=== PATIENT | female | born 1945 | race African-American/Black ===

== ENCOUNTER 2017-09-08 10:29 | Emergency (ER) | payer OTHER ==
[~2017-09-08] VITALS: Ht 167.6 cm; Wt 75.8 kg
[~2017-09-08 10:29] MED LIST: CALTRATE 600 +1 EACH PO; HYDROXYCHLOROQ200 M2 PO; MONTELUKAST SOD10 M1 PO; SINGULAIR10 M1 PO; TYLENOL WITH C1 EACH PO; VITAMIN B-121000 MC3 PO; VITAMIN D1000 UNIT PO; ZYRTEC10 M3 PO
[2017-09-08 10:35] VITALS: BP 148/80
--- NOTE | 2017-09-08 11:41 | ED UPPER/LOWER EXTREMITY COMPL ---
History of Present Illness General Chief Complaint: Skin Rash/ Abcess Stated Complaint: R ARM SWELLING Source: patient Exam Limitations: no limitations Vital Signs & Intake/Output Vital Signs & Intake/Output Vital Signs Date Time Temp Pulse Resp B/P B/P Pulse O2 O2 Flow FiO2 Mean Ox Delivery Rate 09/08 1130 97 09/08 1035 98.0 89 20 148/80 97 Room Air Allergies Coded Allergies: acetaminophen (From PERCOCET) (RASH 12/31/16) morphine (RASH 12/31/16) oxycodone (From PERCOCET) (RASH 12/31/16) Reconcile Medications Calcium Carbonate/Vitamin D3 (Caltrate 600 + D Tablet) 600 MG-800 TABLET 1 TAB PO DAILY SUPPLEMENT (Reported) Cephalexin (Keflex) 500 MG CAPSULE 1 CAP PO TID CELLLITIS Cetirizine HCl (Zyrtec) 10 MG TABLET 1 TAB PO DAILY ALLERGIES (Reported) Cholecalciferol (Vitamin D3) (Vitamin D) 1,000 UNIT TABLET 1 TAB PO DAILY VITAMIN SUPPORT (Reported) Cyanocobalamin (Vitamin B-12) 1,000 MCG TABLET 1 TAB PO DAILY VITAMIN SUPPORT (Reported) Fluconazole (Diflucan) 150 MG TABLET 1 TAB PO ONCE PREVENTATIVE Hydroxychloroquine Sulfate 200 MG TABLET 1 TAB PO BID UNKNOWN (Reported) Montelukast Sodium 10 MG TABLET 1 TAB PO DAILY ALLERGIES (Reported) Montelukast Sodium (Singulair) 10 MG TABLET 1 TAB PO DAILY ALLERGIES ( Reported) Tylenol With Codeine (Tylenol With Codeine #3 Tablet) 300 MG-30 MG TABLET 1 TAB PO BIDP PRN PAIN DO NOT OPERATE MOTOR VEHICLES WITH THIS MEDICATION Triage Note: PT TO ED C/O MYNOR SWELLING SINCE LAST NIGHT. SMALL BRUISE NOTED TO AC AREA. UNKNOWN OBVIOUS INJURY. Triage Nurses Notes Reviewed? yes Onset: Abrupt Duration: day(s): Timing: recent history Severity: moderate Pain/Injury Location: Right: Arm. Method of Injury: unknown No Modifying Factors: none HPI: 72-year-old female comes into the emergency room for swelling to right arm. Symptoms began yesterday mildly got worse today. She reports that she may have been bit by something. Some associated pain. Denies any fever chills vomiting or any other associated symptoms. Comes in for further evaluation. (Keon Pardo) Past History Travel History Traveled to [place] past 21 day No Medical History Any Pertinent Medical History? see below for history EENT: allergies Musculoskeletal: SPINAL STENOSIS DEGENERATIVE DISC DISEASE Surgical History Surgical History: non-contributory Psychosocial History What is your primary language [place] Tobacco Use: Quit >30 days ago ETOH Use: occasional use Illicit Drug Use: denies illicit drug use Family History Hx Contributory? No (Keon Pardo) Review of Systems Review of Systems Constitutional: Reports: no symptoms. EENTM: Reports: no symptoms. Respiratory: Reports: no symptoms. Cardiovascular: Reports: no symptoms. Gastrointestinal/Abdominal: Reports: no symptoms. Genitourinary: Reports: no symptoms. Musculoskeletal: Reports: see HPI. Skin: Reports: see HPI. Neurological/Psychological: Reports: no symptoms. Hematologic/Endocrine: Reports: no symptoms. Immunological: Reports: no symptoms. All Other Systems: Reviewed and Negative (Keon Pardo) Physical Exam Physical Exam General Appearance: well developed/nourished, no apparent distress, alert, awake Head: atraumatic Eyes: Bilateral: normal appearance. Ears, Nose, Throat: normal ENT inspection, hearing grossly normal Neck: normal inspection Cardiovascular/Respiratory: no respiratory distress Back: normal inspection Elbow Right: Mild swelling to right antecubital fossa extending up the upper arm , small 1 cm patch purplish in nature over medial aspect of antecubital fossa Neurologic/Tendon: normal sensation, normal motor functions, normal tendon functions, responds to pain, no evidence tendon injury, no pulse deficit Skin: intact, normal color, warm/dry (Keon Padro) Progress Differential Diagnosis: cellulitis, contusion, DVT, fracture Plan of Care: Orders Procedure Date/time Status US-UNILATERAL VENOUS DOPPLER 09/09 1139 Active Diagnostic Imaging: Viewed by Me: Ultrasound. Discussed w/RAD: Ultrasound. Radiology Impression: PATIENT: CHARLOTTE CHEN PRESENT AGE: 72 PATIENT ACCOUNT NO: [id number] : 45 LOCATION: [facility] ORDERING PHYSICIAN: Keon HART SERVICE DATE: 09/08/17-1139 EXAM TYPE: US - US -UNILATERAL VENOUS DOPPLER EXAMINATION: RIGHT UPPER EXTREMITY VENOUS DOPPLER ULTRASOUND CLINICAL INFORMATION: Sets swelling of the right arm. Presumptive diagnosis of rule out DVT right arm. COMPARISON: None. TECHNIQUE: Doppler spectral analysis and color flow Doppler imaging was performed of the right upper extremity. Compression and augmentation maneuvers were performed. FINDINGS : The right internal jugular vein, proximal brachiocephalic vein, subclavian vein and axillary veins are all patent with normal color flow and phasic changes seen. The upper paired brachial veins are also patent with normal color flow and compressibility seen. In the mid upper arm, however, one of the paired brachial veins is diminutive/atrophic, perhaps as a congenital variant or due to sequelae of previous injury or DVT. The basilic vein is patent with normal compressibility and color flow demonstrated. The cephalic vein is not visualized. The proximal radial and ulnar veins are not evaluated. IMPRESSION: 1. No evidence of acute deep venous thrombosis in the right upper extremity down to the elbow. 2. One of the paired brachial veins in the mid and lower upper arm is markedly diminutive/atrophic, perhaps due to a congenital variant or due to sequelae of previous injury or DVT. 3. The forearm veins were not evaluated and the cephalic vein was not visualized. Depending on clinical circumstances, repeat right upper extremity venous Doppler ultrasound in 7-10 days can be performed to exclude proximal clot propagation from a nonvisualized vein. DICTATED BY: Isabella Yung MD DATE/TIME DICTATED:09/08/171238 FUEL SYSTEM MAINTENANCE SUPERVISOR:MARY CARMEN DATE/TIME TRANSCRIBED:09/08/171238 CONFIDENTIAL, DO NOT COPY WITHOUT APPROPRIATE AUTHORIZATION. <Electronically signed in Other Vendor System> SIGNED BY: Isabella Yung MD 09/08/17 1405 Comments: 09/08/2017 2:59:56 PM Patient clinically looks well. Patient is in no apparent distress. Nontoxic- appearing. No evidence of DVT. Warm compresses. Keflex as prescribed. Likely consistent with cellulitis secondary to INSECT bite of some sort. (Nikolai HART,Keon) Departure Departure Disposition: HOME OR SELF CARE Condition: Stable Clinical Impression Primary Impression: Cellulitis of right arm Referrals: Darryl LEVY,Mitchell Amado (PCP/Family) Additional Instructions: Take Keflex as prescribed. Warm compresses. Elevate your arm. Return if any concerns worsening symptoms. Please go over all results of today's visit with your primary care doctor. Contact your primary care doctor to let them know you were here in the emergency room. There may be nonspecific findings which may not be related to your visit today here in the emergency room but may require further evaluation and chronic monitoring by your primary care doctor. If you had a laceration today the chance of foreign body always remains. You should follow-up with your primary care doctor for recheck in 3-5 days for a wound check. If you had an x-ray done there is a chance that a fracture could have been missed on initial read and you should follow-up with your primary care doctor for repeat x-rays if symptoms persist. If your blood pressure was elevated here in the emergency room please have rechecked by alvaro primary care doctor within the next 48. If you were prescribed a narcotic here in the emergency room or any type of controlled substances you're not allowed to drive while taking this medication or operate any type of heavy machinery. Narcotics can make you feel lightheaded dizziness nausea and can cause constipation. You may need to citrus picker a stool softener. Thank you for choosing [facility] emergency room. Please return to the emergency room immediately if you have any other concerns worsening of symptoms. Departure Forms: Customer Survey General Discharge Information Prescriptions: Current Visit Scripts Cephalexin (Keflex) 1 CAP PO TID #21 CAP Fluconazole (Diflucan) 1 TAB PO ONCE #1 TAB (Keon Pardo) PA/WRAPPER SELECTOR Co-Sign Statement Statement: ED Attending supervision documentation- [X] I saw and evaluated the patient. I have also reviewed all the pertinent lab results and diagnostic results. I agree with the findings and the plan of care as documented in the PA's/WRAPPER SELECTOR's documentation. Patient presents for evaluation of redness and swelling of the right arm. Physical examination reveals redness and swelling in the area of the right antecubital fossa, the right upper extremity is otherwise neurovascularly intact distally. [] I have reviewed the ED Record and agree with the PA's/WRAPPER SELECTOR's documentation. [] Additions or exceptions (if any) to the PAs/WRAPPER SELECTOR's note and plan are summarized below: [] (Madeline LEVY,Edgar Amado)
--- NOTE | 2017-09-08 14:05 | ULTRASOUND REPORT ---
EXAMINATION: RIGHT UPPER EXTREMITY VENOUS DOPPLER ULTRASOUND CLINICAL INFORMATION: Sets swelling of the right arm. Presumptive diagnosis of rule out DVT right arm. COMPARISON: None. TECHNIQUE: Doppler spectral analysis and color flow Doppler imaging was performed of the right upper extremity. Compression and augmentation maneuvers were performed. FINDINGS: The right internal jugular vein, proximal brachiocephalic vein, subclavian vein and axillary veins are all patent with normal color flow and phasic changes seen. The upper paired brachial veins are also patent with normal color flow and compressibility seen. In the mid upper arm, however, one of the paired brachial veins is diminutive/atrophic, perhaps as a congenital variant or due to sequelae of previous injury or DVT. The basilic vein is patent with normal compressibility and color flow demonstrated. The cephalic vein is not visualized. The proximal radial and ulnar veins are not evaluated. IMPRESSION: 1. No evidence of acute deep venous thrombosis in the right upper extremity down to the elbow. 2. One of the paired brachial veins in the mid and lower upper arm is markedly diminutive/atrophic, perhaps due to a congenital variant or due to sequelae of previous injury or DVT. 3. The forearm veins were not evaluated and the cephalic vein was not visualized. Depending on clinical circumstances, repeat right upper extremity venous Doppler ultrasound in 7-10 days can be performed to exclude proximal clot propagation from a nonvisualized vein.
[2017-09-08] MEDS ORDERED: KEFLEX500 M1 PO (14:12)
[2017-09-08] MEDS ORDERED: DIFLUCAN150 M1 PO (14:12)
== END 2017-09-08 14:12 ==
LOC: ERH 10:29
DX: L03.113 Cellulitis of right upper limb (principal)